=== PATIENT | male | born 2000 | race Caucasian/White ===

== ENCOUNTER 2025-05-23 16:13 | Emergency (ER) | payer BC | END 2025-05-23 17:00 | disposition home or self-care (01) | LOC: ER 16:21 | DX: R07.9 Chest pain, unspecified (principal); R06.02 Shortness of breath; R03.0 Elevated blood-pressure reading, without diagnosis of hypertension; Z53.21 Procedure and treatment not carried out due to patient leaving prior to being seen by health care provider ==